=== PATIENT | male | born 1995 | race American Indian/Alaskan Native ===

== ENCOUNTER 2021-07-10 20:34 | Emergency (ER) | payer SELFPAY ==
[2021-07-11] MEDS ORDERED: SODIUM CHLORIDE 0.9% 1000 ML 1,000 ML IV ONE (01:10)
[2021-07-11] MEDS ORDERED: KETOROLAC 30 MG/1 ML INJ IV ONE (01:10)
--- NOTE | 2021-07-11 01:56 | Cat Scan Report ---
CT MAXILLOFACIAL WITHOUT CONTRAST INDICATION / CLINICAL INFORMATION: UPPER LEFT dental abscess #13. TECHNIQUE: CT face was performed without the administration of intravenous contrast. In addition to a xial source images, coronal and sagittal MPR series were provided. All CT scans at this location are performed using CT dose reduction for ALARA by means of automated exposure control. COMPARISON: None available. FINDINGS: FACIAL BONES: Multiple dental caries involve posterior maxillary teeth bilaterally. Additional dental caries involving mandibular teeth. Minimal periapical bone resorption posterior right maxillary mola r. Left lateral maxillary incisor demonstrate periapical bone resorption in the region of soft tissue swelling may represent a nidus for infection. PARANASAL SINUSES: Moderate mucoperiosteal thickening of the left maxillary sinus. Paranasal sinuses and mastoid air cells otherwise clear. ORBITS: No significant abnormality. SOFT TISSUES: Soft tissue swelling along the left nasolabial fold and left malar eminence. No drainab le fluid collections. No fluid collections noted adjacent the maxillary alveolar ridge or mandible. Muscles of mastication, tongue base, and soft tissues of the upper neck are unremarkable. VISUALIZED INTRACRANIAL STRUCTURES: No significant abnormality. ADDITIONAL FINDINGS: None. IMPRESSION: 1. Soft tissue swelling along the left nasolabial fold and left malar eminence compatible with inflam matory etiology. No drainable fluid collections. 2. Paranasal sinus disease as detailed. 3. Multiple dental caries as detailed. Signer Name: Stewart Sher II, MD Signed: 07/11/2021 1:52 AM Workstation Name: [id number]
--- NOTE | 2021-07-11 02:24 | Emergency Department Report ---
ED General Adult HPI - General Chief complaint: Dental/Oral Stated complaint: FACIAL SWELLING AND TOOTH PAIN Time Seen by Provider: 07/11/21 00:45 Source: patient Mode of arrival: Ambulatory Limitations: No Limitations - History of Present Illness Initial comments: Patient a 25-year-old male who presents for dental abscess to left #13. Patient has 5/10 tooth ache with some facial swelling. This is an acute on chronic problem for this patient. Patient states he has been unable to see the dentist. Patient is tolerating p.o. intake however. There is no throat or ear pain. There has been no fever no chills. There is no dizziness lightheadedness or nausea or vomiting. Dental pain is exacerbated by hot and cold stimuli. Dental pain is relieved by nothing tried. There is no drainage. Severity scale (0 -10): 8 - Related Data Previous Rx's Medication Instructions Recorded Last Taken Type Amoxicillin/Potassium Clav 1 each PO BID 7 Days #14 tab 07/11/21 Unknown Rx [Augmentin 875-125 Tablet] Chlorhexidine Mouthwash [Peridex] 15 ml MM BID #1 bottle 07/11/21 Unknown Rx traMADoL [Ultram] 50 mg PO Q6HR PRN #12 tablet 07/11/21 Unknown Rx Allergies Allergy/AdvReac Type Severity Reaction Status Date / Time No Known Allergies Allergy Verified 07/10/21 21:04 ED Review of Systems ROS: Stated complaint: FACIAL SWELLING AND TOOTH PAIN Other details as noted in HPI Constitutional: denies: chills, fever Eyes: as per HPI ENT: dental pain. denies: ear pain, throat pain, epistaxis, congestion Respiratory: denies: cough, shortness of breath, wheezing Cardiovascular: denies: chest pain, palpitations Endocrine: no symptoms reported Gastrointestinal: denies: abdominal pain, nausea, vomiting, diarrhea Genitourinary: denies: urgency, dysuria Musculoskeletal: denies: back pain, joint swelling, arthralgia Skin: denies: rash, lesions Neurological: denies: headache, weakness, numbness, paresthesias, confusion, v ertigo Psychiatric: denies: anxiety, depression Hematological/Lymphatic: denies: easy bleeding, easy bruising ED Past Medical Hx - Medications Home Medications: Home Medications Medication Instructions Recorded Confirmed Last Taken Type Amoxicillin/Potassium Clav 1 each PO BID 7 Days #14 tab 07/11/21 Unknown Rx [Augmentin 875-125 Tablet] Chlorhexidine Mouthwash [Peridex] 15 ml MM BID #1 bottle 07/11/21 Unknown Rx traMADoL [Ultram] 50 mg PO Q6HR PRN #12 tablet 07/11/21 Unknown Rx ED Physical Exam - General Limitations: No Limitations General appearance: alert, in no apparent distress - Head Head exam: Present: atraumatic, normocephalic - Eye Eye exam: Present: normal appearance, PERRL, EOMI Pupils: Present: normal accommodation - ENT ENT exam: Present: mucous membranes moist, TM's normal bilaterally. Absent: no rmal external ear exam - Expanded ENT Exam Expanded Ear exam: Present: normal external inspection Mouth exam: Present: tongue normal. Absent: drooling, trismus, muffled voice Teeth exam: Present: dental caries, fractured tooth #, dental tenderness # (13), other (Mild gum erythema no facial swelling no focal abscess. No drainage. Multiple dental caries.) Throat exam: Positive: normal inspection, other ([place] midline no lesions no stridor). Negative: tonsillar erythema, tonsillomegaly, tonsillar exudate, R peritonsillar mass, L peritonsillar mass - Neck Neck exam: Present: normal inspection, full ROM. Absent: tenderness, lymphadenopathy - Respiratory Respiratory exam: Present: normal lung sounds bilaterally. Absent: respiratory distress, wheezes, stridor, chest wall tenderness - Cardiovascular Cardiovascular Exam: Present: regular rate, normal rhythm, normal heart sounds. Absent: systolic murmur, diastolic murmur, rubs, gallop - GI/Abdominal GI/Abdominal exam: Present: soft. Absent: distended, tenderness - Rectal Rectal exam: Present: deferred - Extremities Exam Extremities exam: Present: normal inspection, full ROM, normal capillary refill. Absent: tenderness - Back Exam Back exam: Present: normal inspection, full ROM. Absent: CVA tenderness (R), CVA tenderness (L) - Neurological Exam Neurological exam: Present: alert, oriented X3, CN II-XII intact, normal gait - Expanded Neurological Exam Expanded Patient oriented to: Present: person, place, time Speech: Present: fluid speech Cranial nerves: EOM's Intact: Normal, Gag Reflex: Normal, Tongue Deviation: Normal, Nystagmus: Normal, Facial Sensation: Normal Best Eye Response ([place]heva): (4) open spontaneously Best Motor Response ([place]): (6) obeys commands Best Verbal Response ([place]): (5) oriented [place] Total: 15 - Psychiatric Psychiatric exam: Present: normal affect, normal mood - Skin Skin exam: Present: warm, dry, intact, normal color. Absent: rash ED Course Vital Signs 07/10/21 07/10/21 21:02 21:05 Temperature 98.6 F Pulse Rate 100 H Respiratory 18 Rate Blood Pressure 145/84 [Right] O2 Sat by Pulse 99 Oximetry ED Medical Decision Making - Radiology Data Radiology results: report reviewed, image reviewed CT MAXILLOFACIAL WITHOUT CONTRAST INDICATION / CLINICAL INFORMATION: UPPER LEFT dental abscess #13. TECHNIQUE: CT face was performed without the administration of intravenous contrast. In addition to axial source images, coronal and sagittal MPR series were provided. All CT scans at this location are performed using CT dose reduction for ALARA by means of automated exposure control. COMPARISON: None available. FINDINGS: FACIAL BONES: Multiple dental caries involve posterior maxillary teeth bilaterally. Additional dental caries involving mandibular teeth. Minimal periapical bone resorption posterior right maxillary molar. Left lateral maxillary incisor demonstrate periapical bone resorption in the region of soft tissue swelling may represent a nidus for infection. PARANASAL SINUSES: Moderate mucoperiosteal thickening of the left maxillary sinus. Paranasal sinuses and mastoid air cells otherwise clear. ORBITS: No significant abnormality. SOFT TISSUES: Soft tissue swelling along the left nasolabial fold and left malar eminence. No drainable fluid collections. No fluid collections noted adjacent the maxillary alveolar ridge or mandible. Muscles of mastication, tongue base, and soft tissues of the upper neck are unremarkable. VISUALIZED INTRACRANIAL STRUCTURES: No significant abnormality. ADDITIONAL FINDINGS: None. IMPRESSION: 1. Soft tissue swelling along the left nasolabial fold and left malar eminence compatible with inflammatory etiology. No drainable fluid collections. 2. Paranasal sinus disease as detailed. 3. Multiple dental caries as detailed. Signer Name: Jer Sher II, MD Signed: 07/11/2021 1:52 AM Workstation Name: [id number] Transcribed By: MARIANNA Dictated By: JER SHER II, MD Electronically Authenticated By: JER SHER II, MD Signed Date/Time: 07/11/21151 DD/ 6 TD/TT: - Medical Decision Making CT facial bones demonstrates multiple dental caries no focal abscess., Physical exam demonstrates same. Patient is tolerating p.o. intake. There is no focal abscess. Patient advises symptoms are improved with medications given in ED plan DC to home with prescription. Follow-up with your dentist in 2 to 3 days. Patient given dental referral. Patient verbalized agreement and understanding with discharge plan. Patient DC'd home in stable condition at this time. Critical care attestation.: If time is entered above; I have spent that time in minutes in the direct care of this critically ill patient, excluding procedure time. ED Disposition Clinical Impression: Infected dental caries, Dental abscess Disposition: HOME / SELF CARE / HOMELESS Is pt being admited?: No Does the pt Need Aspirin: No Condition: Stable Instructions: Dental Abscess, [id number], Preventive Dental Care, Adult Additional Instructions: Take medication as prescribed, follow-up with your dentist in 2 to 3 days. Return to emergency department should symptoms worsen. Prescriptions: Amoxicillin/Potassium Clav [Augmentin 875-125 Tablet] 1 each PO BID 7 Days #14 tab Chlorhexidine Mouthwash [Peridex] 15 ml MM BID #1 bottle traMADoL [Ultram] 50 mg PO Q6HR PRN #12 tablet PRN Reason: Pain Referrals: CORNELIA ROUSSEAU MD [Primary Care Provider] - 3-5 Days [facility] [Outside] - 3-5 Days [facility] [Provider Group] - 3-5 Days Forms: Work/School Release Form(ED) Time of Disposition: 02:32
[2021-07-11 02:57] VITALS: BP 136/80
== END 2021-07-11 03:41 | disposition home or self-care (01) ==
LOC: ED 20:34
DX: K04.7 Periapical abscess without sinus (principal); K02.9 Dental caries, unspecified; Z79.899 Other long term (current) drug therapy
CPT/HCPCS: 70486; 96365; 96375; 99283; J1885; J7030; J7502; 99282